=== PATIENT | female | born 1970 | race Hispanic/Latino ===

== ENCOUNTER 2021-10-12 13:24 | Emergency (ER) | payer MEDICAID ==
[2021-10-12 13:33] VITALS: BP 128/84
--- NOTE | 2021-10-12 14:11 | Emergency Department Report ---
ED Extremity Problem HPI - General Chief complaint: Extremity Injury, Upper Stated complaint: LEFT THUMB AND RIGHT FOOT SWELLING Time Seen by Provider: 10/12/21 13:53 Source: patient Mode of arrival: Ambulatory Limitations: No Limitations - History of Present Illness Initial comments: The patient was evaluated in the emergency department for symptoms described in the history of present illness. He/she was evaluated in the context of the global COVID-19 pandemic, which necessitated consideration that the patient might be at risk for infection with the virus that causes COVID-19. Institutional protocols and algorithms that pertain to the evaluation of patients at risk for COVID-19 are in a state of rapid change based on information released by regulatory bodies including the CDC and federal and state organizations. These policies and algorithms were followed during the patient's care in the emergency department. Please note that these policies, procedures and recommendations changed on a rapid basis. 50-year-old female presents to the emergency room complaining of left thumb pain that she has had since September 132020. She also complains of right foot pain and swelling for 2 days. She states that her left thumb she fractured in her cast was removed in 4 weeks by her orthopedic provider. She comes in today denying any repeat injury to her thumb and complains of pain. She states that her right foot pain is from her sitting down crosslegged it with her foot touching the hardwood floor for a long period of time. Patient denies any initial injury no direct blow no twisting of the ankle nothing being dropped on it. Patient states she is able to bear weight but it is painful. Patient states that she has not taken anything for pain. MD Complaint: extremity pain, extremity swelling Onset/Timin -: days(s) (1 day right foot), month(s) Severity scale (0 -10): 8 Quality: aching Consistency: intermittent Improves with: medication Worsens with: palpation Associated Symptoms: denies other symptoms - Related Data Allergies Allergy/AdvReac Type Severity Reaction Status Date / Time chocolate flavor Allergy Anaphylaxis Verified 10/12/21 13:35 BLOOD THINNERS AdvReac Unknown Uncoded 10/12/21 13:35 ED Review of Systems ROS: Stated complaint: LEFT THUMB AND RIGHT FOOT SWELLING Other details as noted in HPI ED Physical Exam - General Limitations: No Limitations General appearance: alert, in no apparent distress - Head Head exam: Present: atraumatic, normocephalic - Eye Eye exam: Present: normal appearance - ENT ENT exam: Present: mucous membranes moist - Neck Neck exam: Present: normal inspection - Respiratory Respiratory exam: Present: normal lung sounds bilaterally. Absent: respiratory distress, accessory muscle use - Cardiovascular Cardiovascular Exam: Present: regular rate, normal rhythm. Absent: systolic murmur, diastolic murmur, rubs, gallop - GI/Abdominal GI/Abdominal exam: Present: soft, normal bowel sounds - Extremities Exam Extremities exam: Present: normal inspection - Expanded Upper Extremity Exam Left Shoulder Exam: Present: normal inspection, full ROM Upper Arm exam: Present: normal inspection Elbow exam: Present: normal inspection, full ROM Forearm Wrist exam: Present: normal inspection, full ROM. Absent: tenderness, s welling Hand Wrist exam: Present: normal inspection, full ROM. Absent: swelling - Expanded Lower Extremity Exam Right Hip exam: Present: normal inspection, full ROM Upper Leg exam: Present: normal inspection, full ROM Knee exam: Present: normal inspection, full ROM. Absent: tenderness Lower Leg exam: Present: normal inspection, full ROM. Absent: tenderness Ankle exam: Present: normal inspection, full ROM. Absent: tenderness Foot/Toe exam: Present: full ROM, tenderness, swelling. Absent: abrasion, dislocation, erythema Neuro vascular tendon exam: Present: no vascular compromise - Back Exam Back exam: Present: normal inspection - Neurological Exam Neurological exam: Present: alert, oriented X3 - Psychiatric Psychiatric exam: Present: normal affect, normal mood - Skin Skin exam: Present: warm, dry, intact, normal color. Absent: rash ED Course Vital Signs 10/12/21 13:25 Temperature 97.6 F Pulse Rate 92 H Respiratory 18 Rate Blood Pressure 128/84 [Right] O2 Sat by Pulse 100 Oximetry ED Medical Decision Making - Medical Decision Making 50-year-old female presents to the emergency room complaining of left thumb pain that she has had since September 132020. She also complains of right foot pain and swelling for 2 days. She states that her left thumb she fractured in her cast was removed in 4 weeks by her orthopedic provider. She comes in today denying any repeat injury to her thumb and complains of pain. She states that her right foot pain is from her sitting down crosslegged it with her foot touching the hardwood floor for a long period of time. Patient denies any initial injury no direct blow no twisting of the ankle nothing being dropped on it. Patient states she is able to bear weight but it is painful. Patient states that she has not taken anything for pain. Discussed with patient there is no x-rays that need to be done as patient has not reinjured her left thumb or injured her right foot. I discussed with patient she should wear her wrist brace as her orthopedic provider had instructed and adjusted to a comfortable position. Also stated the patient will place an Vinod bandage on her right foot but she needs to apply ice and take nonsteroidal anti- inflammatory. Patient is instructed to follow-up with her orthopedic provider. Critical care attestation.: If time is entered above; I have spent that time in minutes in the direct care of this critically ill patient, excluding procedure time. ED Disposition Clinical Impression: Left thumb sprain, Right foot pain Disposition: 01 HOME / SELF CARE / HOMELESS Is pt being admited?: No Does the pt Need Aspirin: No Condition: Stable Instructions: Finger Sprain (ED), Thumb Sprain Additional Instructions: Please place ice on your right foot elevate wear your Vinod bandage and follow-up with an orthopedic provider. You can take Tylenol or ibuprofen for pain management. Referrals: [facility] [Provider Group] - 3-5 Days Forms: Work/School Release Form(ED) Time of Disposition: 14:19
== END 2021-10-12 14:34 | disposition home or self-care (01) ==
LOC: ED 13:24
DX: S63.602A Unspecified sprain of left thumb, initial encounter (principal); M79.671 Pain in right foot; Z91.018 Allergy to other foods; Z88.3 Allergy status to other anti-infective agents; X58.XXXA Exposure to other specified factors, initial encounter; Y93.89 Activity, other specified; Y92.89 Other specified places as the place of occurrence of the external cause; Y99.8 Other external cause status
CPT/HCPCS: 99282